=== PATIENT | male | born 1980 | race Caucasian/White ===

== ENCOUNTER 2016-07-01 12:17 | Emergency (ER) | payer BC ==
[~2016-07-01] VITALS: Ht 175.3 cm; Wt 97.5 kg
[~2016-07-01 12:17] MED LIST: ALBUTEROL2.5 MG/3 M INH; CIPROFLOXACIN500 M2 ORAL; IBUPROFEN600 MG ORAL; IBUPROFEN600 MG PO; NORCO 10/3251 EA ORAL; NORCO 5-325 TA1 EACH ORAL; NORCO 5-325 TA1 EACH PO; PEPCID40 MG PO; PROTONIX40 MG ORAL; SUCRALFATE1 GM ORAL; ULTRAM50 MG ORAL; VALIUM10 MG ORAL; VALIUM5 MG ORAL; VALIUM5 MG PO; ZOFRAN ODT4 MG ORAL
[2016-07-01] MEDS ORDERED: NKM (12:29)
--- NOTE | 2016-07-01 12:42 | Emergency Room Report ---
History of Present Illness General Chief Complaint: Lower Back Pain or Injury Source: Patient Present Illness [facility] The patient is a 36-year-old male presenting with left lower back pain which began one week prior. The patient states that he had a kidney infection 2 years prior and this feels similar. Pain is described as a 10 out of 10 sharp sensation which is worse with movement such as bending over. No radiating pain. The patient also admits to previously been under pain management for chronic back pain but has not been able to see the physician for medication refill. The patient denies any radiating pain denies any other symptoms including N, V, F, chills, abd pain, dysuria, hematuria, penile DC Allergies: Coded Allergies: No Known Allergies (Unverified , 03/11/16) Patient History Past Medical History: see triage record Pertinent Family History: none Reviewed Nursing Documentation: PMH: Agreed, PSxH: Agreed Nursing Documentation-PMH Hx Cardiac Problems: No Hx Asthma: Yes Hx Cancer: No Hx Gastrointestinal Problems: No Hx Neurological Problems: No Review of Systems All Other Systems: negative except mentioned in HPI Physical Exam Vital Signs Date Time Temp Pulse Resp B/P Pulse Ox O2 Delivery O2 Flow Rate FiO2 07/01/16 12:26 98.4 95 16 123/84 100 Room Air Sp02 EP Interpretation: reviewed, normal General Appearance: no apparent distress, alert, GCS 15, non-toxic Head: normocephalic, atraumatic Eyes: bilateral eye PERRL, bilateral eye normal inspection ENT: hearing grossly normal, normal pharynx, no angioedema, normal voice Neck: full range of motion, supple/symm/no masses Respiratory: chest non-tender, lungs clear, normal breath sounds, speaking full sentences Gastrointestinal: normal bowel sounds, non tender, soft, non-distended, no guarding, no rebound Rectal: deferred Genitourinary: normal inspection, no CVA tenderness Musculoskeletal: back normal, gait/station normal, normal range of motion, no calf tenderness, tender - TTP over bilat paraspinous muscles Neurologic: alert, oriented x3, responsive, motor strength/tone normal, sensory intact, speech normal Psychiatric: judgement/insight normal, memory normal, mood/affect normal, no suicidal/homicidal ideation Reflexes: 3+ bicep (R), 3+ bicep (L), 3+ tricep (R), 3+ tricep (L), 3+ knee (R) , 3+ knee (L) Skin: normal color, no rash, warm/dry, well hydrated Lymphatic: no adenopathy Medical Decision Making PA Attestation Dr. Mullins is my supervising physician. Patient management was discussed with my supervising physician Diagnostic Impression: Primary Impression: Chronic back pain ER Course The patient is a 36-year-old male presenting with left lower back pain which began one week prior. Ddx considered include but not limited to lumbar strain, degenerative disease, UTI, renal lithiasis, chronic pain, narcotic dependency. Physical exam: Vitals within normal limits. No apparent distress There is tenderness to palpation over bilateral lumbar paraspinous muscles. No midline tenderness. Full active range of motion. Abdomen is soft and nontender. Urinalysis is unremarkable Patient is given toradol and tramadol for pain with good relief. CURES was checked and patient received [address] [place] on 05/26/2016 Pt will FU with PMD/pain management for further care. Pt given limited prescription for tramadol. ER precautions given Laboratory Tests Test 07/01/16 12:40 Urine Color Pale yellow Urine Appearance Clear Urine pH 6.5 (4.5-8.0) Urine Specific [place] 1.015 (1.005-1.035) Urine Protein Negative (NEGATIVE) Urine Glucose (UA) Negative (NEGATIVE) Urine Ketones Negative (NEGATIVE) Urine Occult Blood Negative (NEGATIVE) Urine Nitrite Negative (NEGATIVE) Urine Bilirubin Negative (NEGATIVE) Urine Urobilinogen Normal MG/DL (0.0-1.0) Urine Leukocyte Esterase Negative (NEGATIVE) Lab Results Impression UA unremarkable Last Vital Signs Date Time Temp Pulse Resp B/P Pulse Ox O2 Delivery O2 Flow Rate FiO2 07/01/16 12:26 98.4 95 16 123/84 100 Room Air Status: improved Disposition: HOME, SELF-CARE Condition: Improved Scripts Tramadol Hcl* (ULTRAM*) 50 Mg Tablet 50 MG ORAL Q6H Y for For Pain, #10 TAB 0 Refills Prov: TERZIAN,BERLIN P.A. 07/01/16 Ibuprofen* (MOTRIN*) 600 Mg Tablet 600 MG ORAL Q8H Y for For Pain, #30 TAB 0 Refills Prov: TERZIAN,BERLIN P.A. 07/01/16 TERZIAN,BERLIN P.A. Jul 01, 2016 12:42
[2016-07-01] MEDS ORDERED: Ketorolac 30mg Inj IM ONE (12:45)
[2016-07-01] MEDS ORDERED: traMADol 50mg tab ORAL ONE (12:45)
[2016-07-01 13:04] LABS: APPEARANCE,URINE CLEAR; KETONES,URINE NEGATIVE (NEGATIVE); LEUKOCYTE ESTERASE ,URINE NEGATIVE (NEGATIVE); NITRITE,URINE NEGATIVE (NEGATIVE); PH,URINE 6.5 (4.5-8.0); PROTEIN,URINE NEGATIVE (NEGATIVE); UROBILINOGEN,URINE NORMAL MG/DL (0.0-1.0)
[2016-07-01 13:18] VITALS: BP 123/84
[2016-07-01] MEDS ORDERED: IBUPROFEN600 MG ORAL (13:19)
[2016-07-01] MEDS ORDERED: TRAMADOL HCL50 MG ORAL (13:19)
[2016-07-01 13:24] VITALS: BP 123/84
== END 2016-07-01 15:00 | disposition home or self-care (01) ==
LOC: EMR 14:35
DX: G89.29 Other chronic pain (principal); Z87.09 Personal history of other diseases of the respiratory system
CPT/HCPCS: 81003; 96372; 99284; J1885

== ENCOUNTER 2017-03-02 10:39 | Emergency (ER) | payer BC ==
[~2017-03-02] VITALS: Ht 175.3 cm; Wt 99.8 kg
[~2017-03-02 10:39] MED LIST changes: +NKM; +TRAMADOL HCL50 MG ORAL
[2017-03-02 11:12] LABS: APPEARANCE,URINE CLEAR; KETONES,URINE NEGATIVE (NEGATIVE); LEUKOCYTE ESTERASE ,URINE NEGATIVE (NEGATIVE); NITRITE,URINE NEGATIVE (NEGATIVE); PH,URINE 5 (4.5-8.0); PROTEIN,URINE NEGATIVE (NEGATIVE); UROBILINOGEN,URINE NORMAL MG/DL (0.0-1.0)
[2017-03-02 11:26] LABS: BACTERIA,URINE FEW /HPF; MUCUS,URINE FEW /LPF (NONE/OCC); SQUAMOUS EPITHELIAL CELL,UR OCCASIONAL /LPF (NONE/OCC); WBC,URINE 0-2 /HPF (0 - 0)
--- NOTE | 2017-03-02 11:34 | Emergency Room Report ---
History of Present Illness General Chief Complaint: Back Pain-No Injury Source: Patient Present Illness HPI 37-year-old male presenting with right lower back pain for 2 hours. Patient states that pain is localized to right back, nonradiating, sharp. Denies any fever chills nausea vomiting dysuria or hematuria. Pain is not worse with movement. Allergies: Coded Allergies: No Known Allergies (Unverified , 03/11/16) Patient History Past Medical History: see triage record Past Surgical History: none Pertinent Family History: none Reviewed Nursing Documentation: PMH: Agreed, PSxH: Agreed Nursing Documentation-PMH Hx Cardiac Problems: No Hx Hypertension: No Hx Pacemaker: No Hx Asthma: Yes Hx COPD: No Hx Diabetes: No Hx Cancer: No Hx Gastrointestinal Problems: No Hx Dialysis: Yes - Kidney infection History Of Psychiatric Problem: No Hx Neurological Problems: No Hx Cerebrovascular Accident: No Hx Seizures: No Review of Systems All Other Systems: negative except mentioned in HPI Physical Exam Vital Signs Date Time Temp Pulse Resp B/P (MAP) Pulse Ox O2 Delivery O2 Flow Rate FiO2 03/02/17 10:42 98.1 90 14 146/110 97 Room Air Sp02 EP Interpretation: reviewed, normal General Appearance: alert, GCS 15, non-toxic, moderate distress Head: normocephalic, atraumatic Eyes: bilateral eye normal inspection, bilateral eye PERRL, bilateral eye EOMI ENT: normal ENT inspection, normal pharynx, normal voice, moist mucus membranes Neck: normal inspection, full range of motion, supple Respiratory: normal inspection, lungs clear, normal breath sounds, no respiratory distress, no retraction, no wheezing, speaking full sentences, chest symmetrical Cardiovascular #1: normal inspection, regular rate, rhythm, no edema, normal capillary refill Cardiovascular #2: 2+ radial (R), 2+ radial (L) Gastrointestinal: normal inspection, non tender, soft, non-distended, no guarding Genitourinary: no CVA tenderness Musculoskeletal: normal inspection, back normal, normal range of motion, non- tender Neurologic: normal inspection, alert, oriented x3, responsive, motor strength/ tone normal, sensory intact, normal gait, speech normal Psychiatric: normal inspection, judgement/insight normal, memory normal Skin: normal inspection, normal color, no rash, warm/dry, well hydrated, normal turgor Medical Decision Making Diagnostic Impression: Primary Impression: Flank pain ER Course 37-year-old male presenting with right lower back/right flank pain for 2 hours DDX: nephrolithiasis VS infected stone vs. pyelonephritis vs. UTI Versus musculoskeletal Plan: Labs - cbc, bmp, ua, ucx IVF ER course: Patient treated Motrin with some improvement of pain UA positive with RBCs no bacteria Patient states that after he urinated, his pain had disappeared, patient has otherwise had no pain in the emergency room since this. due to urine results, patient may have had passed a small kidney stone Labs are otherwise unremarkable Will discharge to home Disposition: Patient will be discharged to home with Rx for motrin, flomax. Patient instructed to follow up with PMD within 5 days and urology within 1 week. Strict return precautions discussed with patient such as severe or worsening flank pain, high fever, chills, n/v. Patient verbalized understanding and agrees with plan. Please note that this Emergency Department Report was dictated using [employer] technology software, occasionally this can lead to erroneous entry secondary to interpretation by the dictation equipment Laboratory Tests Test 03/02/17 10:47 03/02/17 11:55 Urine Color Pale yellow Urine Appearance Clear Urine pH 5 (4.5-8.0) Urine Specific [place] 1.020 (1.005-1.035) Urine Protein Negative (NEGATIVE) Urine Glucose (UA) Negative (NEGATIVE) Urine Ketones Negative (NEGATIVE) Urine Occult Blood 2+ (NEGATIVE) H Urine Nitrite Negative (NEGATIVE) Urine Bilirubin Negative (NEGATIVE) Urine Urobilinogen Normal MG/DL (0.0-1.0) Urine Leukocyte Esterase Negative (NEGATIVE) Urine RBC 2-4 /HPF (0 - 0) H Urine WBC 0-2 /HPF (0 - 0) Urine Squamous Epithelial Cells Occasional /LPF Urine Bacteria Few /HPF (NONE) Urine Mucus Few /LPF (NONE/OCC) H Urine Opiates Screen Negative (NEGATIVE) Urine Barbiturates Screen Negative (NEGATIVE) Phencyclidine (PCP) Screen Negative (NEGATIVE) Urine Amphetamines Screen Negative (NEGATIVE) Urine Benzodiazepines Screen Negative (NEGATIVE) Urine Cocaine Screen Negative (NEGATIVE) Urine Marijuana (THC) Screen Negative (NEGATIVE) White Blood Count 7.6 K/UL (4.8-10.8) Red Blood Count 5.22 M/UL (4.70-6.10) Hemoglobin 15.3 G/DL (14.2-18.0) Hematocrit 45.6 % (42.0-52.0) Mean Corpuscular Volume 87 FL (80-99) Mean Corpuscular Hemoglobin 29.3 PG (27.0-31.0) Mean Corpuscular Hemoglobin Concent 33.6 G/DL (32.0-36.0) Red Cell Distribution Width 12.0 % (11.6-14.8) Platelet Count 239 K/UL (150-450) Mean Platelet Volume 10.2 FL (6.5-10.1) H Neutrophils (%) (Auto) 67.0 % (45.0-75.0) Lymphocytes (%) (Auto) 24.5 % (20.0-45.0) Monocytes (%) (Auto) 5.1 % (1.0-10.0) Eosinophils (%) (Auto) 2.3 % (0.0-3.0) Basophils (%) (Auto) 1.0 % (0.0-2.0) Sodium Level 135 MMOL/L (136-145) L Potassium Level 4.2 MMOL/L (3.5-5.1) Chloride Level 102 MMOL/L (98-107) Carbon Dioxide Level 26 MMOL/L (21-32) Anion Gap 7 (5-15) Blood Urea Nitrogen 21 mg/dL (7-18) H Creatinine 1.0 MG/DL (0.55-1.30) Estimate Glomerular Filtration Rate > 60 mL/min (>60) Glucose Level 107 MG/DL (74-106) H Calcium Level 9.5 MG/DL (8.5-10.1) Total Bilirubin 0.3 MG/DL (0.2-1.0) Aspartate Amino Transferase (AST) 36 U/L (15-37) Alanine Aminotransferase (ALT) 75 U/L (12-78) Alkaline Phosphatase 67 U/L (46-116) Total Protein 8.2 G/DL (6.4-8.2) Albumin 4.1 G/DL (3.4-5.0) Globulin 4.1 g/dL Albumin/Globulin Ratio 1.0 (1.0-2.7) Lipase 116 U/L (73-393) Last Vital Signs Date Time Temp Pulse Resp B/P (MAP) Pulse Ox O2 Delivery O2 Flow Rate FiO2 03/02/17 10:42 98.1 90 14 146/110 97 Room Air Disposition: HOME, SELF-CARE Condition: Improved Scripts Ibuprofen* (MOTRIN*) 600 Mg Tablet 600 MG ORAL Q8H Y for For Pain, #30 TAB 0 Refills Prov: Lashay Lui M.D. 03/02/17 Tamsulosin Hcl (TAMSULOSIN HCL*) 0.4 Mg Cap.er.24h 0.4 MG ORAL BEDTIME for 5 Days, #5 CAP 0 Refills Prov: Lashay Lui M.D. 03/02/17 Referrals: NOT CHOSEN HEIDI/,REFERRING (PCP) Lashay Lui M.D. Mar 02, 2017 11:34
[2017-03-02 11:49] VITALS: BP 138/99
[2017-03-02 12:27] LABS: EOSINOPHILS % (AUTO) 2.3 % (0.0-3.0); LYMPHOCYTES % (AUTO) 24.5 % (20.0-45.0); MEAN CORPUSCULAR HEMOGLOBIN 29.3 PG (27.0-31.0); MEAN CORPUSCULAR HGB CONC 33.6 G/DL (32.0-36.0); MEAN CORPUSCULAR VOLUME 87 FL (80-99); MEAN PLATELET VOLUME 10.2 FL (6.5-10.1); MONOCYTES % (AUTO) 5.1 % (1.0-10.0); PLATELET COUNT 239 K/UL (150-450); RED BLOOD COUNT 5.22 M/UL (4.70-6.10); WHITE BLOOD COUNT 7.6 K/UL (4.8-10.8)
[2017-03-02 13:03] LABS: ALANINE AMINOTRANSFERASE 75 U/L (12-78); ANION GAP 7 (5-15); ASPARTATE AMINO TRANSFERASE 36 U/L (15-37); CALCIUM 9.5 MG/DL (8.5-10.1); CARBON DIOXIDE 26 MMOL/L (21-32); CHLORIDE 102 MMOL/L (98-107); GLOMERULAR FILTRATION RATE > 60 mL/min (>60); LIPASE 116 U/L (73-393); POTASSIUM 4.2 MMOL/L (3.5-5.1); SODIUM 135 MMOL/L (136-145); TOTAL PROTEIN 8.2 G/DL (6.4-8.2)
[2017-03-02] MEDS ORDERED: IBUPROFEN600 MG ORAL (13:22)
[2017-03-02] MEDS ORDERED: TAMSULOSIN HCL0.4 MG ORAL (13:22)
[2017-03-02 13:52] VITALS: BP 135/97
== END 2017-03-02 13:55 | disposition home or self-care (01) ==
LOC: EMR 11:26
DX: R10.9 Unspecified abdominal pain (principal); M54.5 Low back pain; J45.909 Unspecified asthma, uncomplicated
CPT/HCPCS: 36415; 80053; 80300; 81001; 83690; 85025; 99284

== ENCOUNTER 2019-01-12 09:16 | Emergency (ER) | payer BC, OTHER ==
[~2019-01-12] VITALS: Ht 175.3 cm; Wt 102.1 kg
[~2019-01-12 09:16] MED LIST changes: +TAMSULOSIN HCL0.4 MG ORAL
[2019-01-12] MEDS ORDERED: NKM (09:24)
--- NOTE | 2019-01-12 09:37 | Emergency Room Report ---
History of Present Illness General Chief Complaint: Lower Back Pain or Injury Source: Patient, Medical Record Present Illness HPI Patient reports that on Monday while picking up boxes he had an acute episode where he experienced pain to the lower back area He was off for the next 2 days however he had continued discomfort with bending forward or lifting and was not able to go to work on and Monday Pain initially started in the lower back area now he feels some increased discomfort to the upper flank region on the right side Denies any other fall or trauma denies any chest pain or shortness of breath denies any vomiting denies any dysuria frequency patient does have remote history of kidney Infection Allergies: Coded Allergies: No Known Allergies (Unverified , 03/11/16) Patient History Past Medical History: see triage record Reviewed Nursing Documentation: PMH: Agreed; PSxH: Agreed Nursing Documentation-PMH Hx Cardiac Problems: No Hx Hypertension: No Hx Pacemaker: No Hx Asthma: Yes Hx COPD: No Hx Diabetes: No Hx Cancer: No Hx Gastrointestinal Problems: No Hx Dialysis: Yes - Kidney infection Hx Neurological Problems: No Hx Cerebrovascular Accident: No Hx Seizures: No Review of Systems All Other Systems: negative except mentioned in HPI Physical Exam Vital Signs Date Time Temp Pulse Resp B/P (MAP) Pulse Ox O2 Delivery O2 Flow Rate FiO2 01/12/19 09:19 98.4 91 18 138/63 (88) 96 Room Air Sp02 EP Interpretation: reviewed, normal General Appearance: well appearing, no apparent distress Head: normocephalic, atraumatic Eyes: bilateral eye PERRL, bilateral eye EOMI ENT: normal pharynx, no angioedema Neck: supple Respiratory: lungs clear, no respiratory distress, no retraction Cardiovascular #1: regular rate, rhythm Gastrointestinal: non tender Musculoskeletal: other - Patient has some increased discomfort paralumbar area L3-L4 no midline step-offs, also reports discomfort right flank area, again no other CVA tenderness Neurologic: alert, oriented x3, responsive, [employer] design III-XII nml as tested Skin: no rash Medical Decision Making Diagnostic Impression: Primary Impression: acute lumbar strain Additional Impression: Low back pain ER Course Multiple differentials and consideration including but not limited to muscle skeletal, ligamental, orthopedic, neurosurgical, infectious pathology entertained Patient is afebrile initial discomfort started with physical movement and picking up boxes My consideration for infectious pathology is low I did not feel patient met criteria for blood or urine testing I discussed outpatient follow-up with the patient he does have a primary physician I feel outpatient reevaluation and possible imaging such as MRI would be more beneficial than initial x-ray imaging Patient will have continued outpatient care Last Vital Signs Date Time Temp Pulse Resp B/P (MAP) Pulse Ox O2 Delivery O2 Flow Rate FiO2 01/12/19 09:19 98.4 91 18 138/63 (88) 96 Room Air Status: improved Disposition: HOME, SELF-CARE Condition: Improved Scripts Methocarbamol* (ROBAXIN-750*) 750 Mg Tablet 750 MG PO TID, #21 TAB 0 Refills Prov: Damaris Mullins DO 01/12/19 Additional Instructions: Patient is provided with the discharge instructions notified to follow up with primary doctor in the next 2-3 days otherwise return to the er with any worsening symptoms. Please note that this report is being documented using [employer] technology. This can lead to erroneous entry secondary to incorrect interpretation by the dictating instrument. Damaris Mullins DO Jan 12, 2019 09:37
[2019-01-12] MEDS ORDERED: Methocarbamol 750mg tab ORAL ONE (09:45)
[2019-01-12] MEDS ORDERED: ROBAXIN-750750 MG PO (09:46)
[2019-01-12 09:52] VITALS: BP 138/63
--- NOTE | 2019-01-12 09:54 | NUR ---
ER DISCHARGE NOTE: Patient is cleared to be discharged per ERMD, pt is aox4, on room air, with stable vital signs. pt was given dc and prescription instructions, pt was able to verbalize understanding, pt is able to ambulate with steady gait. pt took all belongings.
[2019-01-12 10:00] VITALS: BP 138/63
== END 2019-01-12 10:06 | disposition home or self-care (01) ==
LOC: EMR 09:30
DX: S39.012A Strain of muscle, fascia and tendon of lower back, initial encounter (principal); J45.909 Unspecified asthma, uncomplicated; X50.9XXA Other and unspecified overexertion or strenuous movements or postures, initial encounter; Y92.512 Supermarket, store or market as the place of occurrence of the external cause; Y99.0 Civilian activity done for income or pay
CPT/HCPCS: 99282